=== PATIENT | male | born 1940 | race Caucasian/White ===

== ENCOUNTER 2016-10-17 10:08 | Day surgery (SDC) | payer OTHER ==
[2016-10-17] MEDS ORDERED: NS 500 ML IV 500 ML IV ONE (12:22)
[2016-10-17] MEDS ORDERED: NS 1/2 1000 ML IV 500 ML IV ONE (12:30)
[2016-10-17] MEDS ORDERED: TETRACAINE HCL AFFEYE ONE (15:11)
[2016-10-17] MEDS ORDERED: BETADINE OPHTH SOLN 5% EACHEYE ONE (15:11)
[2016-10-17] MEDS ORDERED: VIGAMOX 0.5% OPHTH 1 DOSE AFFEYE ONE ×2 (15:24→15:42)
[2016-10-17] MEDS ORDERED: DIPRIVAN VIAL ONE (15:48)
[2016-10-17 16:04] VITALS: BP 162/81
== END 2016-10-17 16:05 | disposition home or self-care (01) ==
LOC: SURG1 10:08
PROVIDERS: ATTEND Ophthalmology
PROC: 08U107Z Supplement of Left Eye with Autologous Tissue Substitute, Open Approach (ICD-10-PCS; principal; 2016-10-17 15:45)
PROC: 08BTXZX Excision of Left Conjunctiva, External Approach, Diagnostic (ICD-10-PCS; principal; 2016-10-17 15:45)
DX: H11.002 Unspecified pterygium of left eye (principal)
CPT/HCPCS: 99100; A4217; J3490

== ENCOUNTER 2016-10-24 06:51 | Day surgery (SDC) | payer OTHER ==
[2016-10-24] MEDS: TETRACAINE 0.5% OPHTH 1 DOSE AFFEYE ONE ×3 (07:30→09:28)
[2016-10-24] MEDS: NS 1/2 1000 ML IV 500 ML IV ONE (07:30)
[2016-10-24] MEDS: VIGAMOX 0.5% OPHTH 1 DOSE AFFEYE ONE ×6 (07:31→09:43)
[2016-10-24] MEDS: AK-DILATE 10% OPHTH 1 DOSE AFFEYE ONE (07:42)
[2016-10-24] MEDS: ALPHAGAN-P OPHTH 1 DOSE AFFEYE ONE (07:43)
[2016-10-24] MEDS: MYDRIACIL OPHTH 1 DOSE AFFEYE ONE ×3 (07:44→07:46)
[2016-10-24] MEDS: AK-DILATE 2.5% OPHTH 1 DOSE OP ONE ×3 (07:44→07:46)
[2016-10-24] MEDS: CYCLOGYL 1% OPHTH 1 DOSE OP ONE ×3 (07:44→07:46)
[2016-10-24] MEDS: NS 500 ML IV 500 ML IV ONE (08:45)
[2016-10-24] MEDS: BETADINE OPHTH SOLN 5% EACHEYE ONE (09:00)
[2016-10-24] MEDS: XYLOCAINE-MPF 1% IJ ONE ×2 (09:20→09:28)
[2016-10-24] MEDS: ADRENALINE CHL INJ IJ ONE ×2 (09:20→09:28)
[2016-10-24] MEDS: DUOVISC IO ONE ×2 (09:20→09:28)
[2016-10-24] MEDS: BSS OPHTH (PLAIN) 500 ML with VANCOMYCIN HCL 500 MG VIAL 25 MG, ADRENALINE CHL INJ 1 MG IR ONE ×6 (09:22→09:28)
[2016-10-24] MEDS ORDERED: DIPRIVAN VIAL ONE (09:37)
[2016-10-24 10:34] VITALS: BP 150/81
== END 2016-10-24 10:05 | disposition home or self-care (01) ==
LOC: SURG1 06:51
PROVIDERS: ATTEND Ophthalmology
PROC: 08RJ3JZ Replacement of Right Lens with Synthetic Substitute, Percutaneous Approach (ICD-10-PCS; principal; 2016-10-24 08:15)
PROC: 08DJ3ZZ Extraction of Right Lens, Percutaneous Approach (ICD-10-PCS; principal; 2016-10-24 08:15)
DX: H25.11 Age-related nuclear cataract, right eye (principal); H25.011 Cortical age-related cataract, right eye; H25.041 Posterior subcapsular polar age-related cataract, right eye; H52.221 Regular astigmatism, right eye
CPT/HCPCS: 99100; A4217; J0170; J3370; J3490

== ENCOUNTER 2017-01-16 08:37 | Day surgery (SDC) | payer OTHER ==
[2017-01-16] MEDS ORDERED: TETRACAINE 0.5% OPHTH 1 DOSE AFFEYE ONE ×2 (09:00→11:12)
[2017-01-16] MEDS ORDERED: VIGAMOX 0.5% OPHTH 1 DOSE AFFEYE ONE ×5 (09:05→11:44)
[2017-01-16] MEDS ORDERED: NS 500 ML IV 500 ML IV ONE (09:11)
[2017-01-16] MEDS ORDERED: PROLENSA OPHTH 1 DOSE AFFEYE ONE (09:16)
[2017-01-16] MEDS ORDERED: ALPHAGAN-P OPHTH 1 DOSE AFFEYE ONE (09:17)
[2017-01-16] MEDS ORDERED: MYDRIACIL OPHTH 1 DOSE AFFEYE ONE ×3 (09:18→09:20)
[2017-01-16] MEDS ORDERED: CYCLOGYL 1% OPHTH 1 DOSE OP ONE ×3 (09:18→09:20)
[2017-01-16] MEDS ORDERED: AK-DILATE 2.5% OPHTH 1 DOSE OP ONE ×3 (09:18→09:20)
[2017-01-16] MEDS ORDERED: BETADINE OPHTH SOLN 5% EACHEYE ONE (11:12)
[2017-01-16] MEDS ORDERED: XYLOCAINE-MPF 1% IJ ONE (11:32)
[2017-01-16] MEDS ORDERED: DUOVISC IO ONE (11:32)
[2017-01-16] MEDS ORDERED: BSS OPHTH (PLAIN) 500 ML with VANCOMYCIN HCL 500 MG VIAL 25 MG, ADRENALINE CHL INJ 1 MG IR ONE ×3 (11:32)
[2017-01-16] MEDS ORDERED: ADRENALINE CHL INJ IJ ONE (11:32)
[2017-01-16] MEDS ORDERED: DIPRIVAN VIAL ONE (13:39)
[2017-01-16 15:43] VITALS: BP 140/68
== END 2017-01-16 12:10 | disposition home or self-care (01) ==
LOC: SURG1 08:37
PROVIDERS: ATTEND Ophthalmology
PROC: 08DK3ZZ Extraction of Left Lens, Percutaneous Approach (ICD-10-PCS; principal; 2017-01-16 15:30)
PROC: 08RK3JZ Replacement of Left Lens with Synthetic Substitute, Percutaneous Approach (ICD-10-PCS; principal; 2017-01-16 15:30)
DX: H25.12 Age-related nuclear cataract, left eye (principal); H25.012 Cortical age-related cataract, left eye; H52.222 Regular astigmatism, left eye
CPT/HCPCS: 99100; A4217; J0170; J3370; J3490